=== PATIENT | female | born 1940 | race Caucasian/White ===

== ENCOUNTER 2019-10-31 10:47 | Observation (INO) | payer OTHER ==
[2019-10-31 10:53] VITALS: BMI 25.7
--- NOTE | 2019-10-31 11:52 | PDOC ---
Documentation entered by Tim Tyler SCRIBE, acting as scribe for Randolph Conley MD. Randolph Conley MD: This documentation has been prepared by the Jayson vail Alexis, SCRIBE, under my direction and personally reviewed by me in its entirety. I confirm that the documentation accurately reflects all work, treatment, procedures, and medical decision making performed by me. History of Present Illness - General Chief Complaint: Shortness of Breath Stated Complaint: SHAKES Time Seen by Provider: 10/31/19 11:02 History Source: Patient Exam Limitations: Language Barrier - History of Present Illness Initial Comments: 10/31/19 11:20 The patient is a 79 year old female with a significant past medical history of Parkinson's Disease (on new medication for 3 months), hypothyroidism, and HLD who presents to the emergency department for evaluation of chest pain and shortness of breath that began this morning. Per patients daughter translating at bedside, the patient began reporting mild chest pain and shortness of breath this morning at approx 10AM. This was accompanied by sweating and shaking/trembling. Pt has parkinson's but daughter states the shaking was more severe than usual. Pt states that she does not currently have any pain but states that she is unable to draw a deep breath. Denies travel. The patient denies abdominal/back pain, cough, fever, chills, nausea, vomiting, and/or any GI symptoms. Denies any symptoms. Denies any other symptoms. Allergies: NKA Past History - Medical History Allergies/Adverse Reactions: Allergies Allergy/AdvReac Type Severity Reaction Status Date / Time No Known Allergies Allergy Verified 10/31/19 11:43 Home Medications: Ambulatory Orders Atorvastatin Ca [Lipitor] 20 mg PO HS 10/31/19 Carbidopa 25 mg PO TID 10/31/19 Carbidopa/Levodopa [Carbidopa-Levodopa 25-100 Tab] 0.5 tab PO TID 10/31/19 Escitalopram Oxalate [Lexapro -] 10 mg PO DAILY 10/31/19 Levothyroxine [Synthroid -] 75 mcg PO DAILY 10/31/19 COPD: No Thyroid Disease: No Other medical history: PARKINSON' DISEASE - Reproductive History Is Patient Now?: No - Immunization History Immunization Up to Date: No - Psycho-Social/Smoking History Smoking History: Never smoked Have you smoked in the past 12 months: No Information on smoking cessation initiated: No - Substance Abuse Hx (Audit-C & DAST Scrn) How often the patient has a drink containing alcohol: Never Score: In Men: 4 or > Positive; In Women: 3 or > Positive: 0 Screen Result (Pos requires Nsg. Audit-10AR): Negative In the last yr the pt used illegal drug/Rx for NonMed reason: No Score: Yes response is considered Positive: 0 Screen Result (Positive result requires Nsg. DAST-10): Negative Review of Systems - Review of Systems Able to Perform ROS?: Yes Comments:: 10/31/19 11:21 GENERAL/CONSTITUTIONAL: +more shaking/trembling than usual, sweating. No fever or chills. No weakness. HEAD, EYES, EARS, NOSE AND THROAT: No change in vision. No ear pain or discharge. No sore throat. CARDIOVASCULAR: No chest pain, no shortness of breath, no loss of consciousness RESPIRATORY: +shortness of breath, chest pain. No cough, wheezing, or hemoptysis. GASTROINTESTINAL: No nausea, vomiting, diarrhea or constipation. GENITOURINARY: No dysuria, frequency, or change in urination. MUSCULOSKELETAL: No joint or muscle swelling or pain. No neck or back pain. SKIN: No rash NEUROLOGIC: No vertigo, no change in strength/sensation. ENDOCRINE: No increased thirst. No abnormal weight change. HEMATOLOGIC/LYMPHATIC: No anemia, easy bleeding, or history of blood clots. ALLERGIC/IMMUNOLOGIC: No hives or skin allergy. *Physical Exam - Vital Signs Last Vital Signs Temp Pulse Resp BP Pulse Ox 98 F 86 16 124/61 98 10/31/19 10:50 10/31/19 10:50 10/31/19 10:50 10/31/19 10:50 10/31/19 10:50 - Physical Exam 10/31/19 11:13 "GENERAL: Awake, alert, and fully oriented, in no acute distress. HEAD: No signs of trauma EYES: PERRLA, EOMI, sclera anicteric, conjunctiva clear ENT: Auricles normal inspection, hearing grossly normal, nares patent, orophary nx clear without exudates. Moist mucosa NECK: Nontender, no stepoffs, Normal ROM, supple, no lymphadenopathy, JVD, or masses LUNGS: Breath sounds equal, clear to auscultation bilaterally. No wheezes, and no crackles HEART: Regular rate and rhythm, normal S1 and S2, no murmurs, rubs or gallops ABDOMEN: Soft, nontender, normoactive bowel sounds. No guarding, no rebound. No masses EXTREMITIES: Normal range of motion, no edema. No clubbing or cyanosis. No cords, erythema, or tenderness NEUROLOGICAL: Cranial nerves II through XII intact. 5/5 strength and sensation in all extremities, Normal speech, normal gait, normal cerebellar function SKIN: Warm, Dry, normal turgor, no rashes or lesions noted." Heart Score/ECG Review - History History: Moderately suspicious - Electrocardiogram EKG: Non specific repolarization disturbance - Age Age: >/= 65 - Risk Factors Risk Factors Heart Score: Yes Hx Hypercholesterolemia Based on the list above the patient has:: 1-2 risk factors - Troponin Troponin: </= normal limit - Score Heart Score - Total: 5 - ECG Impressions Comment:: 10/31/19 11:55 NSR, no ELIE/STDs, T wave flattening V3-V5, intervals wnl, rate 80 ED Treatment Course - LABORATORY CBC & Chemistry Diagram: 10/31/19 11:50 10/31/19 11:20 Medical Decision Making - Medical Decision Making 10/31/19 11:55 79 F with pleuritic chest pain and SOB, with diaphoresis. EKG without acute ischemic changes. Will r/o ACS with serial trops. Also consider PE given pleuritic nature of pain. - Labs, trop, ddimer - CXR 10/31/19 15:41 Ddimer elevated Labs otherwise wnl CTA chest negative for PE Pt admitted to hospitalist. 10/31/19 17:38 Pt and daughter asking to leave AMA. 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 She can take her to see her PMD tomorrow, but she does not want her to stay in the hospital tonight. The patient is clinically sober, free from distracting injury, appears to have intact insight and judgment and reason and in my opinion has the capacity to make decisions. The patient presented with chest pain. I have explained that I am concerned that this may represent a heart attack; they have verbalized an understanding of my concerns. I have told the patient that while their labs were normal, they could still have heart problems. I have discussed the need for cardiology consultation and admission to the hospital to get more information about potential causes of the patients chest pain. I have told the patient that if they leave and have chest pain or shortness of breath, they could get much w orse, could become critically ill, and could possibly become disabled or . I have offered to give the patient more pain medication. I have discussed these concerns with the patients daughter who is at the bedside and she is unable to convince them to stay for further evaluation. She is unwilling to stay overnight for monitoring. She is refusing any further care and is leaving against medical advice. I am unable to convince the patient to stay, I have asked them to return as soon as possible to complete their evaluation. I have answered all their questions. Discharge - Discharge Information Problems reviewed: Yes Clinical Impression/Diagnosis: Chest pain, Shortness of breath Condition: Stable Disposition: AGAINST MEDICAL ADVICE - Follow up/Referral - Patient Discharge Instructions - Post Discharge Activity
[2019-10-31 12:08] LABS: BASO % 0.9 % (0-2.0); EOS % 0.4 % (0-4.5); HEMATOCRIT 38.8 % (32.4-45.2); LYMPH % 29.9 % (8-40); MCH 30.1 pg (25.7-33.7); MCHC 33.5 g/dl (32.0-36.0); MEAN CELL VOLUME 89.8 fl (80-96); MEAN PLT VOLUME 9.3 fl (7.5-11.1); MONO % 7.9 % (3.8-10.2); NEUT % 60.9 % (42.8-82.8); PLATELET COUNT 241 K/MM3 (134-434); RBC 4.32 M/mm3 (3.60-5.2); RDW 13.4 % (11.6-15.6); WHITE BLOOD COUNT 6.9 K/mm3 (4.0-10.0)
[2019-10-31 12:14] LABS: INR 1.09 (0.83-1.09); PROTHROMBIN TIME (PATIENT) 12.9 SEC (9.7-13.0)
[2019-10-31 12:17] LABS: ACTIVATED PTT 29.3 SECONDS (25.2-36.5)
[2019-10-31 12:48] LABS: ALBUMIN 3.8 g/dl (3.4-5.0); ALK PHOS 55 U/L (45-117); ANION GAP 7 MMOL/L (8-16); BILIRUBIN,TOTAL 0.3 mg/dL (0.2-1); BLOOD UREA NITROGEN 11.2 mg/dL (7-18); CALCIUM 9.6 mg/dL (8.5-10.1); CHLORIDE 102 mmol/L (98-107); CO2 28 mmol/L (21-32); CREATININE 0.9 mg/dL (0.55-1.3); GLUCOSE,RANDOM 104 mg/dL (74-106); POTASSIUM 3.9 mmol/L (3.5-5.1); SGOT/AST 39 U/L (15-37); SGPT/ALT 14 U/L (13-61); SODIUM 137 mmol/L (136-145); TOT PROT 7.7 g/dl (6.4-8.2)
--- NOTE | 2019-10-31 13:55 | EKG ---
Test Reason : Blood Pressure : / mmHG Vent. Rate : 080 BPM Atrial Rate : 080 BPM P-R Int : 146 ms QRS Dur : 072 ms QT Int : 376 ms P-R-T Axes : 042 005 016 degrees QTc Int : 433 ms POOR DATA QUALITY, INTERPRETATION MAY BE ADVERSELY AFFECTED NORMAL SINUS RHYTHM LOW VOLTAGE QRS CANNOT RULE OUT ANTERIOR INFARCT , AGE UNDETERMINED ABNORMAL ECG NO PREVIOUS ECGS AVAILABLE Confirmed by Say Linton ([id number]) on 10/31/2019 1:55:00 PM Referred By: Confirmed By:Say Linton
--- NOTE | 2019-10-31 15:49 | HP ---
CHIEF COMPLAINT: chest pain PCP: Dr. Ulloa HISTORY OF PRESENT ILLNESS: Patient is a 79 y/o female with a history of parkinsons, hypothyroidism, and HLD who presents for chest pain. Patient states that for the past month she has been having random feelings of heat coming over her, and today she felt more short of breath then usual. She said it does not last " very long" and it is not associated wiht anything. Patient does not think she has lost any weight but notes she reports her appetite is less. Denies waking up from pain. Had a normal colonoscopy in 2016 and a normal mamogram around the same time. patient takes her medications everyday and takes her synthroid on an empty stomach. Denies chest pain, fever, chills, nausea, diarrhea, or cough. Patient is british speaking ER course was notable for: (1) trop negative, CTA negative (2) (3) Recent Travel: denies PAST MEDICAL HISTORY: parkinsons, hypothyroidism, and HLD PAST SURGICAL HISTORY: appendectoly, cholecystectomy " long itme ago" Social History: Smoking: denies Alcohol: denies Drugs: denies Allergies No Known Allergies Allergy (Verified 10/31/19 11:43) HOME MEDICATIONS: Home Medications Medication Instructions Recorded Atorvastatin Ca [Lipitor] 20 mg PO HS 10/31/19 Carbidopa 25 mg PO DAILY 10/31/19 Carbidopa/Levodopa 0.5 tab PO TID 10/31/19 [Carbidopa-Levodopa 25-100 Tab] Escitalopram Oxalate [Lexapro -] 10 mg PO DAILY 10/31/19 Levothyroxine [Synthroid -] 50 mcg PO DAILY 10/31/19 Tramadol HCl/Acetaminophen 1 tab PO QID 10/31/19 [Ultracet Tablet] REVIEW OF SYSTEMS CONSTITUTIONAL: diaphoresis Absent: fever, chills, diaphoresis, generalized weakness, malaise, loss of appetite, weight change HEENT: Absent: rhinorrhea, nasal congestion, throat pain, throat swelling, difficulty swallowing, mouth swelling, ear pain, eye pain, visual changes CARDIOVASCULAR: Absent: syncope, palpitations, irregular heart rate, lightheadedness, peripheral edema RESPIRATORY: Absent: cough, shortness of breath, dyspnea with exertion, orthopnea, wheezing, stridor, hemoptysis GASTROINTESTINAL: Absent: abdominal pain, abdominal distension, nausea, vomiting, diarrhea, constipation, melena, hematochezia GENITOURINARY: Absent: dysuria, frequency, urgency, hesitancy, hematuria, flank pain, genital pain MUSCULOSKELETAL: Absent: myalgia, arthralgia, joint swelling, back pain, neck pain SKIN: Absent: rash, itching, pallor HEMATOLOGIC/IMMUNOLOGIC: Absent: easy bleeding, easy bruising, lymphadenopathy, frequent infections ENDOCRINE: Absent: unexplained weight gain, unexplained weight loss, heat intolerance, cold intolerance NEUROLOGIC: Absent: headache, focal weakness or paresthesias, dizziness, unsteady gait, seizure, mental status changes, bladder or bowel incontinence PSYCHIATRIC: Absent: anxiety, depression, suicidal or homicidal ideation, hallucinations. PHYSICAL EXAMINATION Vital Signs - 24 hr 10/31/19 10/31/19 10:50 12:14 Temperature 98 F Pulse Rate 86 Respiratory 16 Rate Blood Pressure 124/61 O2 Sat by Pulse 98 99 Oximetry (%) GENERAL: Awake, alert, and fully oriented, in no acute distress. HEAD: Normal with no signs of trauma. EYES: Pupils equal, round and reactive to light, extraocular movements intact, sc EARS, NOSE, THROAT: Moist mucous membranes. LUNGS: Breath sounds equal, clear to auscultation bilaterally. No wheezes, and no crackles. No accessory muscle use. HEART: Regular rate and rhythm, normal S1 and S2 without murmur, rub or gallop. ABDOMEN: Soft, nontender, not distended, normoactive bowel sounds, no guarding, no rebound, no masses. old abd scar MUSCULOSKELETAL: Normal range of motion at all joints. No bony deformities or tenderness. No CVA tenderness. UPPER EXTREMITIES:No peripheral edema. LOWER EXTREMITIES: 2+ pulses, warm, well-perfused. No calf tenderness. No peripheral edema. NEUROLOGICAL: Cranial nerves II-XII intact. Normal speech SKIN: Warm, dry, normal turgor, no rashes or lesions noted, normal capillary refill. Troponin, BNP 10/31/19 11:20 Troponin I < 0.02 CBC, BMP 10/31/19 11:50 10/31/19 11:20 ASSESSMENT/PLAN: Patient is a 79 y/o female with a history of parkinsons, hypothyroidism, and HLD. #SOB with hot flashes - r/o ACS, PE r/o, unlikely COVID but r/o - trop neg x1, f/u repeat - monitor on tele - elevated ddimer PE ruled out, CTA negative - CXR: clear - f/u duplex of legs to r/o dvt #hypothyroidism - continue synthroid - f/u synthroid #parkinsons - continue carbidopa and carbidopa/levadopa #depression - continue lexapro #DVT ppx - Lovenox 40 sq daily FEN - regular diet Dispo: monitor on tele while r/o ACS ATTENDING PHYSICIAN STATEMENT I saw and evaluated the patient. I reviewed the resident's note and discussed the case with the resident. I agree with the resident's findings and plan as documented. SUBJECTIVE: OBJECTIVE: ASSESSMENT AND PLAN:
[2019-10-31 18:30] VITALS: BP 128/74; PULSE 64; TEMP 98.4
--- OUTSIDE RECORDS SUMMARY | 2019-10-31 20:31 | XMS ---
:1940 Author Organization [facility] Support Name Relationship Address Phone RE, RETIRED Unavailable Unavailable Unavailable RE Unavailable Unavailable Unavailable THALIA KRISHNAN DAUGHTER [address] [place] [address] Re-disclosure Warning The records that you are about to access may contain information from federally- assisted alcohol or drug abuse programs. If such information is present, then the following federally mandated warning applies: This information has been disclosed to you from records protected by federal confidentiality rules (42 CFR part 2). The federal rules prohibit you from making any further disclosure of this information unless further disclosure is expressly permitted by the written consent of the person to whom it pertains or as otherwise permitted by 42 CFR part 2. A general authorization for the release of medical or other information is NOT sufficient for this purpose. The Federal rules restrict any use of the information to criminally investigate or prosecute any alcohol or drug abuse patient.The records that you are about to access may contain highly sensitive health information, the redisclosure of which is protected by Article 27-F of the [facility] Public Health law. If you continue you may haveaccess to information: Regarding HIV / AIDS; Provided by facilities licensed or operated by the [facility] Office of Mental Health; or Provided by the [facility] Office for People With Developmental Disabilities. If such information is present, then the following [facility] mandated warning applies: This information has been disclosed to you from confidential records which are protected by state law. State law prohibits you from making any further disclosure of this information without the specific written consent of the person to whom it pertains, or as otherwise permitted by law. Any unauthorized further disclosure in violation of state law may result in a fine or fci sentence or both. A general authorization for the release of medical or other information is NOT sufficient authorization for further disclosure. Insurance Providers Payer name Policy type Policy ID Covered Covered alliance party's Policy P juan miguel / Coverage alliance party ID relationship to [place] [facility] ormation type [place] MEDICAID [id number] SP [id number] [facility] [id number] SP [id number] MEDICARE
[2019-10-31] MEDS ORDERED: CARBIDOPA 25 MG PO SCH (22:00)
[2019-10-31] MEDS ORDERED: ATORVASTATIN CA 20 MG TABLET (FP) PO SCH (22:00)
[2019-10-31] MEDS ORDERED: CARBIDOPA/LEVODOPA 25/100 TABLET (FP) PO SCH (22:00)
[2019-11-01] MEDS ORDERED: LEVOTHYROXINE NA 75 MCG TABLET (FP) PO SCH (07:00)
[2019-11-01] MEDS ORDERED: ESCITALOPRAM OXALATE 10 MG TABLET PO SCH (10:00)
[2019-11-01] MEDS ORDERED: ENOXAPARIN NA (PORCINE) 40 MG/0.4 ML DISP.SYRIN SQ SCH (10:00)
== END 2019-10-31 17:54 | disposition left against medical advice (07) ==
LOC: JER 10:47 → JERBED 15:42
DX: R06.02 Shortness of breath (principal); G20 Parkinson's disease; E03.9 Hypothyroidism, unspecified; E78.5 Hyperlipidemia, unspecified
CPT/HCPCS: 36415; 71045-TC-FY; 71275-TC; 80053; 82550; 83880; 84484; 85025; 85379; 85610; 85730; 93005; 93010; 99285-25; G0378; Q9967